=== PATIENT | female | born 1995 | race Caucasian/White ===

== ENCOUNTER 2023-02-23 02:28 | Emergency (ER) | payer MEDICAID ==
[~2023-02-23] VITALS: Ht 162.6 cm; Wt 73.2 kg
[2023-02-23 02:35] VITALS: O2SAT 98
[2023-02-23 03:08] LABS: EOSINOPHILS % 1.1 % (0.0-5.0); HEMATOCRIT. 38.5 % (36.0-48.0); HEMOGLOBIN. 13.3 g/dL (12.0-16.0); LYMPHOCYTES % 34.5 % (20.0-50.0); MEAN CORPUSCULAR HEMOGLOBIN 30.1 pg (28.0-32.0); MEAN CORPUSCULAR HGB CONC 34.4 g/dL (31.0-37.0); MEAN CORPUSCULAR VOLUME 87.3 fL (81.0-99.0); MEAN PLATELET VOLUME 9.7 fl (7.4-10.4); MONOCYTES % 4.2 % (2.0-8.0); NEUTROPHILS % 59.2 % (40.0-76.0); PLATELET 250 x1000/uL (130-400); RED BLOOD CELL COUNT 4.41 mill/uL (4.2-5.4); RED CELL DISTRIBUTION WIDTH 12.7 % (11.6-14.6); WHITE BLOOD COUNT 9.6 x1000/uL (4.5-11.0)
[2023-02-23 03:46] LABS: CALCIUM 9.2 mg/dL (8.5-10.1); CHLORIDE 108 mEq/L (98-107); INDEX HEMOLYSI 1 (1-3); INDEX ICTERIC 1 (1-4); INDEX LIPEMIC 1 (1-3); POTASSIUM 3.9 mEq/L (3.5-5.1); SODIUM 137 mEq/L (136-145)
[2023-02-23 03:53] LABS: ALANINE AMINOTRANSFERASE 22 IU/L (13-61); ALBUMIN 4.2 g/dL (3.4-5.0); ASPARTATE AMINOTRANSFERASE 16 IU/L (15-37); BILIRUBIN TOTAL 0.4 mg/dL (0.1-1.0); CARBON DIOXIDE 26 mEq/L (21-32); CREATININE 0.6 mg/dL (0.6-1.3); GLUCOSE 93 mg/dL (70-105); PROTEIN TOTAL 8.1 g/dL (6.0-8.3); UREA NITROGEN BLOOD 4 mg/dL (7-21)
[2023-02-23 04:13] LABS: CLARITY URINE CLOUDY (CLEAR); COLOR URINE YELLOW (YELLOW); GLUCOSE URINE NEGATIVE (NEGATIVE); KETONES URINE 2+ (NEGATIVE); LEUKOCYTE ESTERASE URINE TRACE (NEGATIVE); NITRITE URINE NEGATIVE (NEGATIVE); OCCULT BLOOD URINE NEGATIVE (NEGATIVE); PROTEIN URINE TRACE (NEGATIVE); SPECIFIC GRAVITY URINE 1.025 (1.005-1.030)
[2023-02-23 04:18] LABS: BACTERIA URINE 1+; RBC URINE 0-2 /hpf (0-2); YEAST URINE NONE SEEN
[2023-02-23] MEDS ORDERED: KETOROLAC 30MG/ML VIAL IM NR (07:15)
[2023-02-23 07:24] VITALS: BP 123/65; PULSE 87; RESP 12; TEMP 98.3
[2023-02-23 07:25] LABS: SQUAMOUS EPITHELIAL CELL URINE FEW /lpf (RARE/1+)
[2023-02-23 07:27] LABS: WBC URINE 0-2 /hpf (0-2)
[2023-02-23 07:28] LABS: CALCIUM OXALATE CRYSTALS URINE 1+ /lpf
== END 2023-02-23 07:24 | disposition home or self-care (01) ==
LOC: ER 02:28
DX: N83.201 Unspecified ovarian cyst, right side (principal)
CPT/HCPCS: 36415; 76830; 76856; 80053; 81003; 81025; 85025; 99284